=== PATIENT | female | born 1960 | race Caucasian/White ===

== ENCOUNTER 2023-09-18 07:01 | Emergency (ER) | payer MEDICARE, MEDICAID, SELFPAY ==
[2023-09-18 07:09] VITALS: BP 98/56; PULSE 96; RESP 18; TEMP 36.8; O2SAT 96
[2023-09-18 07:14] VITALS: BP 102/55; PULSE 91; O2SAT 97
--- NOTE | 2023-09-18 07:22 | ED_ITS ---
HPI - Skin/Abscess/Foreign Bdy General: Chief complaint: Skin/Abscess/Foreign Body Stated complaint: RASH Time Seen by Provider: 09/18/23 07:05 Source: patient Mode of arrival: EMS History of Present Illness: 60-year-old female presents to the emerg ency room with complaints of a skin rash that she says she has had for 13 months per her report to the nurses when I can seen her she told me it was 14 months. States she feels like something is crawling all over her she states she is seen the doctor in [place] but did not feel like they paid very much attention to it. She has not had any fever sweats or chills. She has had no blistering of the rash. No bleeding no drainage. Patient denies trying any [id number] medications for it. MD complaint: rash Onset (ago): month(s) (-) Quality: pruritic Relieving factors: none Exacerbating factors: none Associated symptoms: Reports itching; Deny arthralgias, chills, cough, fever(s), myalgias, nausea, rigidity, short of breath or vomiting Treatments prior to arrival: none Review of Systems Const: Denies: fever(s) or chills Card: Denies: chest pain Resp: Denies: dyspnea GI: Denies: nausea or vomiting : Denies: dysuria, urinary frequency or urinary urgency Musc: Denies: neck pain or back pain Skin/Breast: Denies: rash Physical Exam Const: COMMON NORMALS: no acute distress GENERAL APPEARANCE: cooperative and comfortable NUTRITIONAL APPEARANCE: underweight ORIENTATION/CONSCIOUSNESS: Yes awake, Yes oriented to person, Yes oriented to place and Yes oriented to time HENMT: COMMON NORMALS: normocephalic, atraumatic and hearing grossly normal bilaterally HEAD & SCALP: normocephalic and atraumatic Resp: COMMON NORMALS: normal respiratory effort, No retractions, No use of accessory muscles and clear to auscultation bilaterally AUSCULTATION: clear to auscultation bilaterally Cardio: COMMON NORMALS: regular rate, regular rhythm and No murmurs present (Cardio) RATE: regular rate RHYTHM: regular rhythm GI: COMMON NORMALS: Soft to palpation and No hepatosplenomegaly present AUSCULTATION: Yes normoactive bowel sounds PALPATION: Yes Soft to palpation, No Tenderness to palpation present (GI), No Guarding due to palpation present (GI) and Yes No hepatosplenomegaly present Extremity: COMMON NORMALS: normal to inspection, capillary refill normal, no clubbing, cyanosis or edema, no calf tenderness and no pedal edema Neuro: SENSORIUM/ORIENTATION: Yes oriented to person, Yes oriented to place and Yes oriented to time Psych: MOOD & AFFECT: Yes irritable Skin: COMMON NORMALS: no rashes or lesions noted GENERAL SKIN EXAM: no rashes or lesions noted OTHER: No rash noted. Patient does indicate a couple areas where she has a small ecchymosis most notably on the dorsum of her right forearm she also has areas bilaterally over the patella 1 area in the left anterior tibia another on the medial proximal left thigh. None on the trunk. None in the scalp or on the face chest or abdomen. Skin is quite dry she is continually itching at her skin during exam Course Vital Signs: Vital signs: Vital Signs Temperature 98.3 F 09/18/23 07:09 Pulse Rate 91 09/18/23 07:14 Respiratory Rate 18 09/18/23 07:09 Blood Pressure 102/55 09/18/23 07:14 Pulse Oximetry 97 09/18/23 07:14 Oxygen Delivery Me thod Room Air 09/18/23 07:09 MDM - Skin/Abscess/Foreign Bdy Medicial Decision Making No emergent condition at this time. Patient purely focused on the rash she denies all other symptoms and review of systems. She has not tried anything [id number]. This point no emergent condition exists recommended. Cetaphil lotion as needed can use cetirizine up to 10 mg twice a day for pruritic symptoms. If this persists or worsens follow-up with primary care doctor for referral to dermatology if felt appropriate Medical Records I reviewed the patient's medical records. No radiology studies performed this visit Discharge Plan Discharge Patient Disposition: Home Clinical Impression: Dyshidrosis Condition: Stable Prescriptions: New cetirizine 10 mg capsule 10 mg PO BID PRN (Reason: itching) Qty: 60 0RF Cetaphil Moisturizing Lotion 1 applic topical QID PRN (Reason: dry skin) Qty: 473 0RF Discharge Orders: Discharge ED (Routine); Ordered 09/18/23 Ordered By: Toribio Turner Referrals: Louise Montesinos NP [Primary Care Provider] - Discharge Diet: Usual diet Discharge Activity: Resume usual activity Patient Instructions: Opioid Safety, Pain Management Activity Restrictions/Additional Instructions: Thank you for choosing [facility] for your healthcare needs today. Please realize this is an emergency room and that we are providing you with a medical screening exam and this may not be complete and all inclusive of all the testing and or work up that you may need to determine your ailment or severity of your illness. It is very important that you follow up as instructed or that you return to the Emergency Department should you have concerns or if your condition changes or worsens in any way. Recommend you follow-up with your primary care doctor for further evaluation if condition worsens, changes or persists. Print Language: Dominican Coding Level of Care Code ED Energy Conservation Director for Bhupinder Abreu
== END 2023-09-18 07:19 | disposition home or self-care (01) ==
PROVIDERS: Emergency Provider Family Medicine; PCP Nurse Practitioner Family
DX: L30.1 Dyshidrosis [pompholyx] (principal)
CPT/HCPCS: 99283

== ENCOUNTER 2024-04-06 13:45 | Emergency (ER) | payer MEDICARE, MEDICAID, SELFPAY ==
[2024-04-06] VITALS (7 sets, daily range): BP systolic 116–147; BP diastolic 66–71; PULSE 77–101; RESP 14–24; TEMP 36.4; O2SAT 96–100
--- NOTE | 2024-04-06 13:48 | ECG_ITS ---
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 Measurements Intervals [place] Rate: 83 P: 208 [place]: 366 QRS: 44 QRSD: 90 T: 30 QT: 400 QTc: 470 Interpretive Statements ELECTRONIC ATRIAL PACEMAKER POSSIBLE INFERIOR MYOCARDIAL INFARCTION , PROBABLY OLD [30 ms Q WAVE IN II/aVF] ABNORMAL RHYTHM ECG WARNING: DATA QUALITY MAY AFFECT INTERPRETATION Compared to ECG 09/06/2018 01:06:12 Myocardial infarct finding now present Sinus rhythm no longer present ST (T wave) deviation no longer present Electronically Signed On 04-06-2024 21:51:04 CRACKER SPRAYER by Ky Reynoso M.D. [id number]
--- NOTE | 2024-04-06 13:49 | XR_ITS ---
WS: [id number] XR chest 1V portable [id number] REASON FOR EXAM: dyspnea/cough FINDINGS: Moderate tortuosity of the thoracic aorta. Normal heart size. Calcified granulomas disease. Blunting of the right costophrenic angle. Seen on previous examination of 09/06/2018. There are subtle reticular interstitial lung opacities over the right costophrenic and left costophre jeyson angles and also in the left lower lung. There is peribronchial cuffing associated with this abnor mality. Old healed bilateral rib fractures. Laterally XR/XR chest 1V portable [id number] IMPRESSION: There are subtle changes in both lower lobes of unknown chronicity, however the se findings may represent an early pneumonitis.
--- NOTE | 2024-04-06 14:05 | ED_ITS ---
HPI - SOB/Dyspnea 2 General: Chief Complaint: Shortness of Breath/Dyspnea Stated Complaint: SOB Time Seen by Provider: 04/06/24 13:47 History of Present Illness: HPI Narrative: 63-year-old female presents to [facility] ency room coming shortness of breath and cough for the last 2 months no hemoptysis. She has productive cough of discolored mucus she has been on antibiotics and steroids she was told she had pneumonia she is still having symptoms. Patient not having any hemoptysis. She has had the symptoms intermittently for the last 2 months. Associated symptoms: Reports chest congestion; Deny abdominal pain, chest pain or fever(s) Related Data Home Medications Medication Instructions Recorded Confirmed albuterol sulfate 90 mcg/actuation 2 puff inhalation Q8H PRN 04/06/24 04/06/24 aerosol inhaler Shortness Of Breath famotidine 20 mg tablet (Pepcid) 20 mg PO DAILY 04/06/24 04/06/24 furosemide 40 mg tablet 40 mg PO DAILY 04/06/24 04/06/24 hydroxyzine HCl 50 mg tablet 50 mg PO TID PRN Anxiety 04/06/24 04/06/24 mirtazapine 15 mg tablet 15 mg PO BEDTIME 04/06/24 04/06/24 pantoprazole 40 mg tablet,delayed 40 mg PO DAILY 04/06/24 04/06/24 release potassium chloride 10 mEq 10 meq PO QAM 04/06/24 04/06/24 tablet,extended release trazodone 150 mg tablet 150 mg PO BEDTIME 04/06/24 04/06/24 Previous Rx's Medication Instructions Recorded cetirizine 10 mg capsule 10 mg PO BID PRN itching #60 caps 09/18/23 vit U-stcqyxnf-xzzotkmlkhw lotion 1 applic topical QID PRN dry skin 09/18/23 (Cetaphil Moisturizing lotion) #473 mL Allergies Allergy/AdvReac Type Severity Reaction Status Date / Time morphine Allergy ALGY-Rash Verified 07/15/23 16:07 Review of Systems 2 Const: Denies: fever(s) or chills Card: Denies: chest pain Resp: Reports: dyspnea, productive cough, wheezing and chest congestion GI: Denies: abdominal pain : Denies: dysuria, urinary frequency or urinary urgency Musc: Denies: neck pain or back pain Skin/Breast: Denies: rash PFSH ED 2 PFSH: Medical History (Updated 04/06/24 @ 18:44 by Toribio Turner DO) COPD (chronic obstructive pulmonary disease) Physical Exam 2 Const: COMMON NORMALS: no acute distress GENERAL APPEARANCE: cooperative and comfortable ORIENTATION/CONSCIOUSNESS: Yes awake, Yes oriented to person, Yes oriented to place and Yes oriented to time HENMT: COMMON NORMALS: normocephalic, atraumatic and hearing grossly normal bilaterally HEAD & SCALP: normocephalic and atraumatic Resp: COMMON NORMALS: normal respiratory effort, No retractions, No use of accessory muscles and clear to auscultation bilaterally AUSCULTATION: clear to auscultation bilaterally Cardio: COMMON NORMALS: regular rate, regular rhythm and No murmurs present (Cardio) RATE: regular rate RHYTHM: regular rhythm GI: COMMON NORMALS: Soft to palpation and No hepatosplenomegaly present A USCULTATION: Yes normoactive bowel sounds PALPATION: Yes Soft to palpation, No Tenderness to palpation present (GI), No Guarding due to palpation present (GI) and Yes No hepatosplenomegaly present Extremity: COMMON NORMALS: normal to inspection, capillary refill normal, no clubbing, cyanosis or edema, no calf tenderness and no pedal edema Neuro: SENSORIUM/ORIENTATION: Yes oriented to person, Yes oriented to place and Yes oriented to time Skin: COMMON NORMALS: no rashes or lesions noted GENERAL SKIN EXAM: no rashes or lesions noted Course 2 Vital Signs: Vital signs: Vital Signs Temperature 97.5 F L 04/06/24 13:54 Pulse Rate 101 H 04/06/24 17:00 Respiratory Rate 20 H 04/06/24 16:14 Blood Pressure 147/71 04/06/24 17:00 Pulse Oximetry 96 04/06/24 16:14 Oxygen Delivery Me thod Room Air 04/06/24 16:14 MDM - SOB/Dyspnea Medical Decision Making Initially I seen and patient is complaining of shortness of breath and cough he has not had any hemoptysis but she was complaining of productive cough. When I went back to review with the patient we had added a gallbladder ultrasound because her liver functions are elevated she does have hepatitis C. She is now complaining of chest pain which she had not complained of previously. We added troponins at that appointment for follow-up the labs she had done earlier in the second 1 to be redrawn. Patient decided to leave AMA. Up to this point we had been looking at possible pneumonia PE the CTA chest was negative she had added the complaint of chest pain which started cardiac labs. Reviewed with the patient that so far findings did not show significant abnormality she was convinced that she had pneumonia and discussed with her she did not have a pneumonia or a pulmonary embolism. Medical Records I reviewed the patient's medical records. Lab Data I reviewed the patient's lab results. 04/06/24 14:05 04/06/24 14:05 Labs/Radiology: Radiology Impressions Chest X-Ray 04/06/24 13:49 IMPRESSION: There are subtle changes in both lower lobes of unknown chronicity, however these findings may represent an early pneumonitis. Chest CTA 04/06/24 15:28 IMPRESSION: 1. No pulmonary embolism. No acute intrathoracic aortic process. 2. The lungs are clear of acute infiltrates. Mild subpleural reticulation. 3. Multi station mediastinal lymph nodes are likely reactive. 4. Findings in the upper abdomen include cirrhotic morphology of the liver, mild hydropic gallbladder with gallstones, diffuse gastric wall thickening which may be related to portal venous hypertension versus gastritis, and ascites. COMMENTS: The presence of pulmonary emphysema on CT is an independent risk factor for lung cancer. In the absence of a history or active diagnosis of lung cancer, it is recommended that this patient with emphysema be evaluated for enrollment in a low dose CT lung cancer screening program. Gallbladder Ultrasound 04/06/24 15:58 IMPRESSION: Cirrhotic morphology of the liver. There is some gallbladder wall thickening and some pericholecystic fluid. These changes within the gallbladder are likely secondary to diffuse hepatocellular disease. Laboratory Results WBC 8.27 10^3/uL (3.29-11.43) 04/06/24 14:05 RBC 3.04 10^6/uL (3.85-5.65) L 04/06/24 14:05 Hgb 9.30 g/dL (11.27-16.99) L 04/06/24 14:05 Hct 28.3 % (36-47) L 04/06/24 14:05 MCV 93.1 fl (85-98) 04/06/24 14:05 MCH 30.6 pg (27-33) 04/06/24 14:05 MCHC 32.9 g/dL (30-55) 04/06/24 14:05 RDW 17.3 % (12.1-15.1) H 04/06/24 14:05 Plt Count 154 10^3/cmm (157-399) L 04/06/24 14:05 MPV 11.6 fL (7.4-10.4) H 04/06/24 14:05 Neut % (Auto) 57.8 % 04/06/24 14:05 Lymph % (Auto) 28.9 % 04/06/24 14:05 Bowman % (Auto) 11.2 % 04/06/24 14:05 Eos % (Auto) 1.1 % 04/06/24 14:05 Baso % (Auto) 0.8 % 04/06/24 14:05 Neut # (Auto) 4.77 10^3/uL (1.8-7.7) 04/06/24 14:05 Lymph # (Auto) 2.4 10^3/uL (0.8-4.8) 04/06/24 14:05 Bowman # (Auto) 0.9 10^3/uL (0.2-0.9) 04/06/24 14:05 Eos # (Auto) 0.1 10^3/uL (0.0-0.8) 04/06/24 14:05 Baso # (Auto) 0.1 10^3/uL (0.0-0.1) 04/06/24 14:05 Nucleated RBC % (auto) 0 % 04/06/24 14:05 Nucleated RBCs # 0.0 /100WBC 04/06/24 14:05 Specimen Type Arterial 04/06/24 15:41 Sample Site Brachial, right 04/06/24 15:41 ABG pH 7.49 (7.35-7.45) H 04/06/24 15:41 ABG pCO2 26.8 mmHg (35-45) L 04/06/24 15:41 ABG pO2 89.9 mmHg (80.0-100.0) 04/06/24 15:41 ABG PO2/FiO2 Ratio 428 04/06/24 15:41 ABG HCO3 20.4 mmol/L (22-26) L 04/06/24 15:41 ABG O2 Saturation 97.5 04/06/24 15:41 ABG Base Excess -2.2 mmol/L (-2.0-2.0) L 04/06/24 15:41 Tolu Test N/a 04/06/24 15:41 A-a O2 Gradient 3.5 mmHg (5-10) L 04/06/24 15:41 Hematocrit 27.8 % (37-47) L 04/06/24 15:41 Hgb O2 Saturation 95.2 % (95-100) 04/06/24 15:41 Carboxyhemoglobin 1.9 %THgb (0.4-20.1) 04/06/24 15:41 Methemoglobin 0.4 % (0.4-1.5) 04/06/24 15:41 Total Hemoglobin 9.1 g/dL (12-16) L 04/06/24 15:41 Sodium 142.0 mmol/L (131-143) 04/06/24 15:41 Potassium 3.2 mmol/L (3.5-5.0) L 04/06/24 15:41 Glucose 107.0 mg/dL (70-115) 04/06/24 15:41 Ionized Calcium 1.2 mmol/L (1.1-1.4) 04/06/24 15:41 O2 Delivery Device Room air 04/06/24 15:41 FiO2 21.0 % 04/06/24 15:41 Engine Boss ID glc 04/06/24 15:41 Sodium 137 mmol/L (136-145) 04/06/24 14:05 Potassium 3.4 mmol/L (3.5-5.1) L 04/06/24 14:05 Chloride 99 mmol/L (98-107) 04/06/24 14:05 Carbon Dioxide 23 mmol/L (22-29) 04/06/24 14:05 Anion Gap 18.4 (5-19) 04/06/24 14:05 BUN 13 mg/dL (8-23) 04/06/24 14:05 Creatinine 0.7 mg/dL (0.5-0.9) 04/06/24 14:05 GFR Calculation 84.5 mL/min (90-130) L 04/06/24 14:05 Glucose 102 mg/dL (65-115) 04/06/24 14:05 Calculated Osmolality 284 mOsm/kg (285-295) L 04/06/24 14:05 Calcium 9.2 mg/dL (8.5-10.5) 04/06/24 14:05 Total Bilirubin 1.9 mg/dL (0.15-1.2) H 04/06/24 14:05 AST 202 U/L (0-32) H 04/06/24 14:05 ALT 78 U/L (0-33) H 04/06/24 14:05 Alkaline Phosphatase 162 U/L (35-105) H 04/06/24 14:05 Troponin T Baseline 44 ng/L (0-10) H 04/06/24 14:05 NT-Pro-B Natriuret Pep 457 pg/mL (0-125) H 04/06/24 14:05 Total Protein 7.8 g/dL (6.6-8.7) 04/06/24 14:05 Albumin 3.6 g/dL (3.5-5.2) 04/06/24 14:05 Globulin 4.2 g/dL (1.3-4.6) 04/06/24 14:05 Lipase 95 U/L (13-60) H 04/06/24 14:05 Coronavirus (PCR) Negative (Negative) 04/06/24 14:05 Hepatitis A IgM Ab Non-reactive (Nonreactive) 04/06/24 14:05 Hep Bs Antigen Non-reactive (Nonreactive) 04/06/24 14:05 Hep B Core IgM Ab Non-reactive (Nonreactive) 04/06/24 14:05 Hepatitis C Antibody Reactive (Nonreactive) H 04/06/24 14:05 Influenza A (PCR) Negative (Negative) 04/06/24 14:05 Influenza Type B (PCR) Negative (Negative) 04/06/24 14:05 RSV (PCR) Negative (Negative) 04/06/24 14:05 All radiology interpretation(s) finalized by discharge Discharge Plan Discharge Patient Disposition: Left Against Medical Advice Clinical Impression: Acute exacerbation of chronic obstructive airways disease Prescriptions: No Action furosemide 40 mg tablet 40 mg PO DAILY potassium chloride 10 mEq tablet extended release 10 meq PO QAM hydroxyzine HCl 50 mg tablet 50 mg PO TID PRN (Reason: Anxiety) famotidine [Pepcid] 20 mg Tablet 20 mg PO DAILY pantoprazole 40 mg tablet,delayed release (DR/EC) 40 mg PO DAILY trazodone 150 mg tablet 150 mg PO BEDTIME mirtazapine 15 mg tablet 15 mg PO BEDTIME albuterol sulfate 90 mcg/actuation Hfa Aerosol Inhaler 2 puff INHALATION Q8H PRN (Reason: Shortness Of Breath) cetirizine 10 mg capsule 10 mg PO BID PRN (Reason: itching) Qty: 60 0RF Cetaphil Moisturizing Lotion 1 applic topical QID PRN (Reason: dry skin) Qty: 473 0RF Referrals: Louise Montesinos, LAW TUTOR [Primary Care Provider] - Coding Level of Care Code ED Ladle Liner for Daríog Brady
[2024-04-06] MEDS: methylPREDNISolone sod succ 125 mg/2 mL INJ IVP (14:18)
[2024-04-06 14:21] LABS: Basophils # 0.1 10^3/uL (0.0-0.1); Basophils % 0.8 %; Eosinophils # 0.1 10^3/uL (0.0-0.8); Eosinophils % 1.1 %; Hematocrit 28.3 % (36-47); Lymphocytes # 2.4 10^3/uL (0.8-4.8); Lymphocytes % 28.9 %; Mean Corpuscular HGB Conc 32.9 g/dL (30-55); Mean Corpuscular Hemoglobin 30.6 pg (27-33); Mean Corpuscular Volume 93.1 fl (85-98); Mean Platelet Volume 11.6 fL (7.4-10.4); Monocytes # 0.9 10^3/uL (0.2-0.9); Monocytes % 11.2 %; Neutrophils # 4.77 10^3/uL (1.8-7.7); Neutrophils % 57.8 %; Nucleated Red Blood Cells % 0 %; Platelet Count 154 10^3/cmm (157-399); Red Blood Count 3.04 10^6/uL (3.85-5.65); Red Cell Distribution Width 17.3 % (12.1-15.1); White Blood Count 8.27 10^3/uL (3.29-11.43)
[2024-04-06] MEDS: ipratropium-albuterol 3 mL Neb INHALATION ×2 (14:32→16:11)
[2024-04-06 14:51] LABS: Alanine Aminotransferase 78 U/L (0-33); Albumin Level 3.6 g/dL (3.5-5.2); Alkaline Phosphatase 162 U/L (35-105); Anion Gap 18.4 (5-19); Aspartate Amino Transferase 202 U/L (0-32); Blood Urea Nitrogen 13 mg/dL (8-23); Calcium 9.2 mg/dL (8.5-10.5); Carbon Dioxide 23 mmol/L (22-29); Chloride 99 mmol/L (98-107); Creatinine Clr Calc Pharmacy 58.9037; Globulin 4.2 g/dL (1.3-4.6); Glomerular Filtration Rate 84.5 mL/min (90-130); Glucose 102 mg/dL (65-115); NT Pro B Type Natriuretic Pept 457 pg/mL (0-125); Osmolality Calculated 284 mOsm/kg (285-295); Potassium 3.4 mmol/L (3.5-5.1); Sodium 137 mmol/L (136-145); Total Bilirubin 1.9 mg/dL (0.15-1.2); Total Protein 7.8 g/dL (6.6-8.7)
[2024-04-06 15:02] LABS: Covid PCR NEGATIVE (Negative); Influenza A NEGATIVE (Negative); Influenza B NEGATIVE (Negative); Respiratory Syncytial Virus Ce NEGATIVE (Negative)
--- NOTE | 2024-04-06 15:28 | CTR_ITS ---
PROCEDURE INFORMATION: Exam: CTA Chest With Contrast Exam date and time: 04/06/2024 4:34 PM Age: 63 years old Clinical indication: Dyspnea; Additional info: Dyspnea chest pain TECHNIQUE: Imaging protocol: Computed tomographic angiography of the chest with contrast. Exam focused on the arteries. 3D rendering (Not supervised by radiologist): MIP and/or 3D reconstructed images were created by the technologist. Radiation optimization: All CT scans at this facility use at least one of these dose optimization techniques: automated exposure control; mA and/or kV adjustment per patient size (includes targeted exams where dose is matched to clinical indication); or iterative reconstruction. Contrast material: OMNIPAQUE 350; Contrast volume: 75 ml; Contrast route: INTRAVENOUS (IV); COMPARISON: CR XR chest 1V portable [id number] 04/06/2024 1:53 PM RADIATION DOSE METRICS: Total DLP (mGy-cm): 191.43 FINDINGS: Pulmonary arteries: Normal. No pulmonary emboli. Aorta: Unremarkable. No aortic aneurysm. No aortic dissection. 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 Excellent Lungs: Emphysematous changes of the lungs. No lobar consolidation. Mild areas of subpleural reticulation related to atelectasis versus of subpleural fibrosis. Pleural spaces: Unremarkable. No pneumothorax. No pleural effusion. Heart: Unremarkable. No cardiomegaly. No pericardial effusion. Coronary arteries: Mild coronary artery calcifications. Lymph nodes: Multi station small mediastinal lymph nodes are present. Liver: Nodular contour of the liver suggesting cirrhosis. Gallbladder and biliary ducts: Gallstones within a mildly distended gallbladder. Stomach: There is diffuse gastric wall thickening which is nonspecific. Intraperitoneal space: Perihepatic ascites. Bones/joints: Chronic rib fractures. Soft tissues: Unremarkable. CT/CT angio chest PE protcl [id number] IMPRESSION: 1. No pulmonary embolism. No acute intrathoracic aortic process. 2. The lungs are clear of acute infiltrates. Mild subpleural reticulation. 3. Multi station mediastinal lymph nodes are likely reactive. 4. Findings in the upper abdomen include cirrhotic morphology of the liver, mild hydropic gallbladder with gallstones, diffuse gastric wall thickening which may be related to portal venous hypertension versus gastritis, and ascites. COMMENTS: The presence of pulmonary emphysema on CT is an independent risk factor for lung cancer. In the absence of a history or active diagnosis of lung cancer, it is recommended that this patient with emphysema be evaluated for enrollment in a low dose CT lung cancer screening program.
[2024-04-06 15:53] LABS: ABG PCO2 26.8 mmHg (35-45); ABG PH Result 7.49 (7.35-7.45); Alveolar-Arterial Oxygen Gradi 3.5 mmHg (5-10); Arterial Blood Gas Hematocrit 27.8 % (37-47); Base Excess ABG -2.2 mmol/L (-2.0-2.0); Blood Gas Operator Identificat glc; Blood Gas Sample Site Brachial, right; Blood Gas Sample Type Arterial; Carboxyhemoglobin 1.9 %THgb (0.4-20.1); HCO3 ABG 20.4 mmol/L (22-26); HGB O2 Sat 95.2 % (95-100); Ionized Calcium Level - ABG 1.2 mmol/L (1.1-1.4); Methemoglobin 0.4 % (0.4-1.5); Oxygen Device ROOM AIR; Oxygen Saturation ABG 97.5; PO2 ABG 89.9 mmHg (80.0-100.0); PO2 FiO2 Ratio Arterial Blood 428; Potassium Level - ABG 3.2 mmol/L (3.5-5.0); Total Hemoglobin 9.1 g/dL (12-16)
--- NOTE | 2024-04-06 15:58 | USR_ITS ---
PROCEDURE INFORMATION: Exam: US Abdomen, Limited; Right Upper Quadrant Exam date and time: 04/06/2024 4:50 PM Age: 63 years old Clinical indication: Abnormal findings; Abnormal lab test; Elevated liver enzymes; Additional info: Elevated liver enzymes and t. Bili TECHNIQUE: Imaging protocol: Real time ultrasound of the abdomen with image documentation. Limited exam focused on the right upper quadrant. COMPARISON: CT angio chest PE protcl [id number] 04/06/2024 4:34 PM FINDINGS: Liver: Cirrhotic morphology of the liver peripheral nodular contour. Trace hepatic ascites. Gallbladder: There is a sonographic negative Charles's sign. Gallbladder wall thickness is up to 4 mm. The gallbladder is slightly hydropic. Mild pericholecystic fluid. Biliary ducts: No biliary dilatation. Pancreas: Limited evaluation of the pancreas is unremarkable. Right kidney: Normal right kidney. US/US gall bladder [id number] IMPRESSION: Cirrhotic morphology of the liver. There is some gallbladder wall thickening and some pericholecystic fluid. These changes within the gallbladder are likely secondary to diffuse hepatocellular disease.
[2024-04-06] MEDS: iohexol 350 mg/mL 500 mL Btl (per mL) IV (16:37)
[2024-04-06 16:41] LABS: Hepatitis A Antibody IgM Non-Reactive (Nonreactive); Hepatitis B Core IgM Non-Reactive (Nonreactive); Hepatitis B Surface Antigen Non-Reactive (Nonreactive); Hepatitis C Virus Antibody Reactive (Nonreactive)
[2024-04-06 17:28] LABS: Lipase 95 U/L (13-60)
--- NOTE | 2024-04-06 17:47 | ECG_ITS ---
[facility] Test Date: 2024-04-06 Pat Name: Sapna Talamantes Department: Room: Gender: Female Creative Services Specialist: : 1960 Requested By: Toribio Griggs Order Number: [id number] Joel MD: Ky Reynoso M.D. Measurements Intervals [place] Rate: 118 P: 60 ME: 147 QRS: 48 QRSD: 83 T: 68 QT: 421 QTc: 591 Interpretive Statements SINUS TACHYCARDIA POSSIBLE LEFT ATRIAL ENLARGEMENT [-0.1mV P-WAVE IN V1/V2] NONSPECIFIC ST & T-WAVE ABNORMALITY Compared to ECG 04/06/2024 13:48:38 T-wave abnormality now present Atrial-paced complex(es) or rhythm no longer present Myocardial infarct finding no longer present Electronically Signed On 04-06-2024 21:24:46 LAST CODE STRIPER by Ky Reynoso M.D. [email or web address]
--- NOTE | 2024-04-06 18:03 | PC.NURSE ---
PT agitated, refusing troponin stating she wants to leave to go to [facility]
[2024-04-06 18:10] LABS: Troponin(5th) Baseline 44 ng/L (0-10)
[2024-04-08 15:39] LABS: HEP C RNA Viral Load Quant 1890000 IU/mL (NOT DETECTED); HEP C RNA Viral Load Quant 6.28 Log IU/mL (NOT DETECTED)
== END 2024-04-06 18:04 | disposition left against medical advice (07) ==
PROVIDERS: Emergency Provider Family Medicine; PCP Nurse Practitioner Family
DX: J44.1 Chronic obstructive pulmonary disease with (acute) exacerbation (principal); Z11.52 Encounter for screening for COVID-19
CPT/HCPCS: 0241U; 36415; 36600; 71045; 71275; 76705; 80051; 80053; 80074; 82330; 82805; 83690; 83880; 84484; 85025; 87522; 93005; 94640; 96374; 99285; J2919

== ENCOUNTER 2025-02-03 12:39 | Emergency (ER) | payer OTHER, MEDICAID, SELFPAY ==
[2025-02-03 12:42] VITALS: BP 100/59; PULSE 111; RESP 16; TEMP 36.8; O2SAT 96; BMI 17.4
--- NOTE | 2025-02-03 12:45 | W.ED.GIBLEED ---
HPI - GI Bleed General: Chief complaint: GI Bleed Stated complaint: n/v Time Seen by Provider: 02/03/25 12:41 History of Present Illness: 64-year-old female with a history of COPD and chronic hypoxemic respiratory failure on 2 L nasal cannula at all times, cirrhosis and small esophageal varices who presents to the emergency room with vomiting and diarrhea that appears to be bloody. She does have a history of an ulcer in the past. She reports black tarry stools. She is borderline hypotensive and slightly tachycardic on presentation. Says she has been having some epigastric pain. No altered mental status. No focal motor deficits. No known history of cirrhosis. Related Data Home Medications ?Medication ?Instructions ?Recorded ?Confirmed albuterol sulfate 90 mcg/actuation 2 puff inhalation Q8H PRN 04/06/24 04/06/24 aerosol inhaler Shortness Of Breath famotidine 20 mg tablet (Pepcid) 20 mg PO DAILY 04/06/24 04/06/24 furosemide 40 mg tablet 40 mg PO DAILY 04/06/24 04/06/24 hydroxyzine HCl 50 mg tablet 50 mg PO TID PRN Anxiety 04/06/24 04/06/24 mirtazapine 15 mg tablet 15 mg PO BEDTIME 04/06/24 04/06/24 pantoprazole 40 mg tablet,delayed 40 mg PO DAILY 04/06/24 04/06/24 release potassium chloride 10 mEq 10 meq PO QAM 04/06/24 04/06/24 tablet,extended release trazodone 150 mg tablet 150 mg PO BEDTIME 04/06/24 04/06/24 Previous Rx's ?Medication ?Instructions ?Recorded cetirizine 10 mg capsule 10 mg PO BID PRN itching #60 caps 09/18/23 vit S-bvvgtovw-yzfmhyrnqrs lotion 1 applic topical QID PRN dry skin 09/18/23 (Cetaphil Moisturizing lotion) #473 mL Allergies Allergy/AdvReac Type Severity Reaction Status Date / Time morphine Allergy ALGY-Rash Verified 07/15/23 16:07 Review of Systems Narrative: Constitutional symptoms: Negative except as documented in HPI. Skin symptoms: Negative except as documented in HPI. Eye symptoms: Negative except as documented in HPI. ENMT symptoms: Negative except as documented in HPI. Respiratory symptoms: Negative except as documented in HPI. Cardiovascular symptoms: Negative except as documented in HPI. Gastrointestinal symptoms: Negative except as documented in HPI. Genitourinary symptoms: Negative except as documented in HPI. Musculoskeletal symptoms: Negative except as documented in HPI. Neurologic symptoms: Negative except as documented in HPI. Psychiatric symptoms: Negative except as documented in HPI. Endocrine symptoms: Negative except as documented in HPI. [facility] PFSH: Medical History (Updated 02/03/25 @ 14:28 by Sujey Cancino MD) COPD (chronic obstructive pulmonary disease) Physical Exam Narrative: EXAM NARRATIVE: General: Alert, no acute distress. Skin: Warm, dry. Appears pale Head: Normocephalic, atraumatic. Neck: Supple, trachea midline. Eye: Extraocular movements are intact. Ears, nose, mouth and throat: mucosa moist. Cardiovascular: Regular, Normal peripheral perfusion. Respiratory: Lungs are clear to auscultation, respirations are non-labored, breath sounds are equal, Symmetrical chest wall expansion. Gastrointestinal: Soft, epigastric tenderness, Non distended Musculoskeletal: Normal ROM, no deformity. Neurological: Alert and oriented, No focal neurological deficit observed. Psychiatric: Cooperative, appropriate mood & affect. Course Vital Signs: Vital signs: Vital Signs Temperature 98.3 F 02/03/25 12:42 Pulse Rate 111 H 02/03/25 12:42 Respiratory Rate 16 02/03/25 12:42 Blood Pressure 100/59 02/03/25 12:42 Pulse Oximetry 96 02/03/25 12:42 Oxygen Delivery Me thod Room Air 02/03/25 12:42 MDM - GI Bleed Medical Decision Making Medical decision making: Differential diagnosis including but not limited to and based on the above HPI, review of systems and physical exam: In a patient with upper GI bleeding would have concern for upper gi bleed from varices or ulcer. Concern for anemia. Concern for liver disease. concern for anticoagulation. Orders placed to evaluate differential diagnosis based on the above differential, HPI and physical exam Lab Review: Laboratory results were reviewed and interpreted by myself the emergency room physician. No leukocytosis. Hemoglobin 5.9. BUN and creatinine 59 and 1.2. This would indicate an acute upper GI bleed. Bilirubin is a bit elevated at 3.3. I reviewed the patient's medical record. 64-year-old female with a history of COPD and chronic hypoxemic respiratory failure on 2 L nasal cannula at all times, cirrhosis and small esophageal varices. I spoke with the transfer center at [facility] and confirmed that she did have esophageal varices and portal hypertensive gastropathy. Reexamination: Patient absolutely refuses to go by helicopter. Vitals have remained stable with a bit of a soft blood pressure and heart rate around 100-110. No altered mental status. No focal motor deficits. She does show capacity to make decisions. Assessment and plan: Acute upper GI bleeding Acute blood loss anemia Cirrhosis Esophageal varices COPD ? 2 units PRBCs in the emergency room. 1 L normal saline bolus. IV Protonix. Octreotide -I discussed the patient with the accepting physician on-call. - Discussed findings and plan with patient. Answered any questions. - All laboratory values were reviewed and interpreted personally by myself, the ER physician - All imaging was reviewed and interpreted personally by myself, the ER physician. - Evaluation and treatment of this problem were appropriate in the emergency setting Critical Care: -I spent a total of 38 minutes of critical care time managing the patient, independent of any other practitioner. -The time involved in the performance of separately reportable procedures was not counted towards critical care time. Lab Data 02/03/25 12:05 02/03/25 12:05 Laboratory Results WBC 9.53 10^3/uL (3.29-11.43) 02/03/25 12:05 RBC 1.98 10^6/uL (3.85-5.65) L 02/03/25 12:05 Hgb 5.90 g/dL (11.27-16.99) L* 02/03/25 12:05 Hct 19.1 % (36-47) L* 02/03/25 12:05 MCV 96.5 fl (85-98) 02/03/25 12:05 MCH 29.8 pg (27-33) 02/03/25 12:05 MCHC 30.9 g/dL (30-55) 02/03/25 12:05 RDW 20.1 % (12.1-15.1) H 02/03/25 12:05 Plt Count 133 10^3/cmm (157-399) L 02/03/25 12:05 MPV 13.0 fL (7.4-10.4) H 02/03/25 12:05 Neut % (Auto) 71.8 % 02/03/25 12:05 Lymph % (Auto) 16.1 % 02/03/25 12:05 Bent % (Auto) 11.3 % 02/03/25 12:05 Eos % (Auto) 0.0 % 02/03/25 12:05 Baso % (Auto) 0.1 % 02/03/25 12:05 Neut # (Auto) 6.84 10^3/uL (1.8-7.7) 02/03/25 12:05 Lymph # (Auto) 1.5 10^3/uL (0.8-4.8) 02/03/25 12:05 Bent # (Auto) 1.1 10^3/uL (0.2-0.9) H 02/03/25 12:05 Eos # (Auto) 0.0 10^3/uL (0.0-0.8) 02/03/25 12:05 Baso # (Auto) 0.0 10^3/uL (0.0-0.1) 02/03/25 12:05 Nucleated RBC % (auto) 0.7 % 02/03/25 12:05 Nucleated RBCs # 0.1 /100WBC 02/03/25 12:05 PT 17.10 SECONDS (12.1-14.9) H 02/03/25 13:09 INR 1.31 (0.8-1.2) H 02/03/25 13:09 APTT 29.9 SECONDS (23.9-36.7) 02/03/25 13:09 Sodium 138 mmol/L (136-145) 02/03/25 12:05 Potassium 3.1 mmol/L (3.5-5.1) L 02/03/25 12:05 Chloride 86 mmol/L (98-107) L 02/03/25 12:05 Carbon Dioxide 24 mmol/L (22-29) 02/03/25 12:05 Anion Gap 31.1 (5-19) H 02/03/25 12:05 BUN 59 mg/dL (8-23) H 02/03/25 12:05 Creatinine 1.2 mg/dL (0.5-0.9) H 02/03/25 12:05 GFR Calculation 45.2 mL/min (90-130) L 02/03/25 12:05 Glucose 111 mg/dL (65-115) 02/03/25 12:05 Calculated Osmolality 303 mOsm/kg (285-295) H 02/03/25 12:05 Lactic Acid 7.7 mmol/L (0.5-2.2) H* 02/03/25 13:09 Calcium 10.0 mg/dL (8.5-10.5) 02/03/25 12:05 Total Bilirubin 3.3 mg/dL (0.15-1.2) H 02/03/25 12:05 AST 110 U/L (0-32) H 02/03/25 12:05 ALT 45 U/L (0-33) H 02/03/25 12:05 Alkaline Phosphatase 139 U/L (35-105) H 02/03/25 12:05 Total Protein 7.4 g/dL (6.6-8.7) 02/03/25 12:05 Albumin 3.5 g/dL (3.5-5.2) 02/03/25 12:05 Globulin 3.9 g/dL (1.3-4.6) 02/03/25 12:05 Blood Type O Positive 02/03/25 13:09 Rho(D) Type Rh positive 02/03/25 13:09 Antibody Screen Negative 02/03/25 13:09 Crossmatch See Detail 02/03/25 13:09 No radiology studies performed this visit Discharge Plan Discharge Patient Disposition: Xfer Short-Term Hosp Clinical Impression: Upper gastrointestinal hemorrhage, Acute blood loss anemia, Cirrhosis, History of esophageal varices, Chronic obstructive pulmonary disease Condition: Stable Referrals: Louise Montesinos NP [Primary Care Provider, [facility]] Print Language: Armenian Coding Level of Care Code ED Nursing Administrator for Daríog Brady
--- OUTSIDE RECORDS SUMMARY | 2025-02-03 12:51 | XMS_ITS | Encounter Summary ---
Author Organization [facility] Address [address] Attn: [place] [address] Care Team Providers Care Group Rooms Coordinator Name Role Phone Alf Tavares MD Primary Care Provider [phone] Encounter Details Date Type Department Care Team ([facility] st Contact Info) Description 01/28/2000 Outpatient Historical Non-Staff, Physician NO ADDRESS ON FILE Social History Tobacco Use Types Packs/Day Years Used Date Smoking Tobacco: Never Assessed Comments Unknown Sex and Gender Information Value Date Recorded Sex Assigned at Not on file Legal Sex Female 4:48 AM MODERN DANCER Gender Identity Not on file Sexual Orientation Not on file documented as of this encounter Plan of Treatment Not on file documented as of this encounter Visit Diagnoses Not on filedocumented in this encounter Additional Health Concerns Infection Onset Date Last Indicated Resolved Time R/O COVID-19 04/14/2020 04/14/2020 04/15/2020 11:0 1 PM MODERN DANCER documented as of this encounter Care Teams Group Rooms Coordinator Relationship Specialty Start Date End Date Alf Tavares MD [address] [facility] [address] [place] [phone] PCP - General Family Practice 01/28/18 documented as of this encounter
--- OUTSIDE RECORDS SUMMARY | 2025-02-03 12:51 | XMS_ITS | Encounter Summary ---
Author Organization [facility] Address [address] Attn: [place] [address] Care Team Providers Care Making Machine Catcher Name Role Phone Alf Tavares MD Primary Care Provider [phone] Encounter Details Date Type Department Care Team ([facility] st Contact Info) Description 10/21/2001 Outpatient Historical Non-Staff, Physician NO ADDRESS ON FILE Social History Tobacco Use Types Packs/Day Years Used Date Smoking Tobacco: Never Assessed Comments Unknown Sex and Gender Information Value Date Recorded Sex Assigned at Not on file Legal 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 Female 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 Gender Identity Not on file Sexual Orientation Not on file documented as of this encounter Plan of Treatment Not on file documented as of this encounter Visit Diagnoses Not on filedocumented in this encounter Additional Health Concerns Infection Onset Date Last Indicated Resolved Time R/O COVID-19 04/14/2020 04/14/2020 04/15/2020 11:0 1 PM FABRIC DESIGNER documented as of this encounter Care Teams Making Machine Catcher Relationship Specialty Start Date End Date Alf Tavares MD [address] [facility] [address] [place] [phone] PCP - General Family Practice 01/28/18 documented as of this encounter
--- OUTSIDE RECORDS SUMMARY | 2025-02-03 12:51 | XMS_ITS | Encounter Summary ---
Author Organization [facility] Address [address] [place] [address] Care Team Providers Care Criminology Teacher Name Role Phone Alf Tavares MD Primary Care Provider [phone] Reason for Visit * Reason Comments Medication Refill Encounter Details Date Type Department Care Team (Late st Contact Info) Description 02/03/2025 Refill [facility] Family Medicine [place] [address] [facility] [address] [place] [address] Lisandra Ontiveros, [facility] [address] [address] Alcoholic cirrhosis of liver without ascites Social History Tobacco Use Types Packs/Day Years Used Date Smoking Tobacco: Former Cigarettes 1 50.6 S tarted: 07/16/1974 Smokeless Tobacco: Never Alcohol Use Standard Drinks/Week Comments Not Currently 8 (1 standard drink = 0.6 oz pur e alcohol) daily Social Connections Answer Date Recorded In a typical week, how many times do you talk on the phone with family, friends, or neighbors? More than three times a week 01/28/2020 How often do you get togethe r with friends or relatives? Once a week 01/28/2020 How often do you attend chur ch or jewish services? Never 01/28/2020 Do you belong to any clubs o r organizations such as buddhist groups, unions, fraternal or athletic groups, or school groups? No 01/28/2020 How often do you attend meet ings of the clubs or organizations you belong to? Never 01/28/2020 Are you , , di vorced, , never , or living with a partner? 01/28/2020 Financial Resource Strain Answer Date R ecorded How hard is it for you to pa y for the very basics like food, housing, medical care, and heating? Not very hard 01/28/2020 Food Insecurity Answer Date Recorded Within the past 12 months, y ou worried that your food would run out before you got the money to buy more. Never true 01/28/20 20 Within the past 12 months, t he food you bought just didn't last and you didn't have money to get more. Never true 01/28/2020 Transportation Needs Answer Date Record ed In the past 12 months, has l ack of transportation kept you from medical appointments or from getting medications? Yes 01/04 In the past 12 months, has l ack of transportation kept you from meetings, work, or from getting things needed for daily living? Yes 01/28/2020 Feeling Safe Answer Date Recorded Are you in a relationship wi th someone who hurts you emotionally and/or physically? No 08/27/2024 Food Insecurity Answer Date Recorded Patient needs follow up regardin 08/25/2024 Transportation Needs Answer Date Record ed Patient needs follow up regardin 08/25/2024 Housing Stability Answer Date Recorded Social/Environmental Concerns No concerns Utility Needs Answer Date Recorded Patient needs follow up regardin 08/25/2024 Comments No Sex and Gender Information Value Date Recorded Sex Assigned at Not on file Legal Sex Female 3:55 AM CHILDCARE PROVIDER Gender Identity Not on file Sexual Orientation Not on file documented as of this encounter Miscellaneous Notes * Telephone Encounter - Nikki Novoa - 02/03/2025 10:53 AM CDT Copied from [facility] #[id number]. Topic: Medication Request >> Feb 03, 2025 10:48 AM Nikki Mcgee wrote: Caller Name: Ricarda Rendon (Caregiver) not on PHI-Pt gave Permission Callback Number: [phone] Medication (Ask patient/caregiver to spell if possible): furosemide (LASIX) 40 mg tablet Note: All medication prescriptions can be requested using one [facility] Preferred Pharmacy: [facility] [address] [facility], [place] - [address], [facility] [address] Call Notes: States Pt is out of medication because she has been taking 2 pills daily because 1 pillis not strong enough. Did caller contact the correct clinic for prescribing provider? Yes Ask caller if the refill is for a controlled medication. Is this for a controlled Medication? No Review the patient's medications to determine if they have refills remaining. Are there refills remaining for the medication? Yes Did the patient/caregiver contact their pharmacy for refill prior to calling? Yes Is there an encounter open? No documented in this encounter Plan of Treatment Not on file documented as of this encounter Visit Diagnoses Diagnosis Alcoholic cirrhosis of liver without ascites Alcoholic cirrhosis of liver documented in this encounter Care Teams Criminology Teacher Relationship Specialty Start Date End Date Alf Tavares MD [address] [phone] PCP - General Family Practice 07/12/24 documented as of this encounter
--- OUTSIDE RECORDS SUMMARY | 2025-02-03 12:51 | XMS_ITS | Encounter Summary ---
Author Organization [facility] Address [address] [place] [address] Care Team Providers Care Railroad Police Officer Name Role Phone Alf Tavares MD Primary Care Provider [phone] Encounter Details Date Type Department Care Team (Latest Contact Info) Description 12/25/2002 Outpatient Historical [facility] [address] [place] [address] AMBULANCE, [facility] CHEST PAIN NOS (Primary Dx) Social History Tobacco Use Types Packs/Day Years Used Date Smoking Tobacco: Never Assessed Comments Unknown Sex and Gender Information Value Date Recorded Sex Assigned at Not on file Legal Sex Female 4:48 AM CHIEF CRNA Gender Identity Not on file Sexual Orientation Not on file documented as of this encounter Plan of Treatment Not on file documented as of this encounter Visit Diagnoses Diagnosis Chest pain, unspecified- Primary documented in this encounter Additional Health Concerns Infection Onset Date Last Indicated Resolved Time R/O COVID-19 04/14/2020 04/14/2020 04/15/2020 11:0 1 PM CHIEF CRNA documented as of this encounter Care Teams Railroad Police Officer Relationship Specialty Start Date End Date Alf Tavares MD [address] [facility] [address] [place] [phone] PCP - General Family Practice 01/28/18 documented as of this encounter
--- OUTSIDE RECORDS SUMMARY | 2025-02-03 12:51 | XMS_ITS | Encounter Summary ---
Author Organization [facility] Address [address] [place] [address] Care Team Providers Care Adjunct Professor Of Law Name Role Phone Alf Tavares MD Primary Care Provider [phone] Encounter Details Date Type Department Care Team (Late st Contact Info) Description 04/26/2007 Outpatient Historical [facility] [address] [place] [address] Jerome Banuelos MD [address] [address] Social History Tobacco Use Types Packs/Day Years Used Date Smoking Tobacco: Never Assessed Comments Unknown Sex and Gender Information Value Date Recorded Sex Assigned at Not on file Legal Sex Female 4:48 AM CIRCUIT BOARD REPAIR TECHNICIAN Gender Identity Not on file Sexual Orientation Not on file documented as of this encounter Plan of Treatment Not on file documented as of this encounter Visit Diagnoses Not on filedocumented in this encounter Additional Health Concerns Infection Onset Date Last Indicated Resolved Time R/O COVID-19 04/14/2020 04/14/2020 04/15/2020 11:0 1 PM CIRCUIT BOARD REPAIR TECHNICIAN documented as of this encounter Care Teams Adjunct Professor Of Law Relationship Specialty Start Date End Date Alf Tavares MD [address] [facility] [address] [place] [phone] PCP - General Family Practice 01/28/18 documented as of this encounter
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
--- OUTSIDE RECORDS SUMMARY | 2025-02-03 12:51 | XMS_ITS | Clinical Summary ---
Author Organization [facility] Address [address] [place] [address] Care Team Providers Care Fellmongery Worker Name Role Phone Alf Tavares MD Primary Care Provider [phone] Allergies Active Allergy Reactions Criticality Noted Date Comments Codeine Nausea and Vomiting Low 01/20/2013 Medications pantoprazole (PROTONIX) 40 mg Tablet, Delayed Release (E.C.)Indications: Gastroesophageal reflux disease without esophagitis TAKE 1 TABLET(40 MG) BY MOUTH DAILY 90 Tablet 1 1 Active traZODone (DESYREL) 150 mg tabletIndications: Primary insomnia TAKE 1 TABLET(150 MG) BY MOUTH EVERY NIGHT NEEDED FOR INSOMNIA 90 Tablet 1 1 Active potassium chloride (KLOR-CON) 10 mEq Extended Release tabletIndications: Localized edema TAKE 1 TABLET(10 MEQ) BY MOUTH DAILY WITH BREAKFAST 90 Tablet 1 1 Active hydrOXYzine HCL (ATARAX) 50 mg tabletIndications: Recurrent major depressive disorder, in partial remission TAKE 1 TABLET BY MOUTH THREE TIMES DAILY NEEDED FOR ANXIETY 270 Tablet 1 1 Active mirtazapine (REMERON) 15 mg tabletIndications: Recurrent major depressive disorder, in partial remission TAKE 1 TABLET(15 MG) BY MOUTH DAILY AT BEDTIME 90 Tablet 1 1 Active fluticasone propionate (FLONASE) 50 mcg/spray [place], Suspension nasal inhalerIndications :Allergic rhinitis, unspecified seasonality, unspecified trigger Administer 2 Sprays in each nostril daily. 48 Gram 1 1 Active albuterol HFA 90 mcg inhalerIndications :Panlobular emphysema Take 2 Puffs by inhalation every 8 hours as needed for Shortness of Breath or Wheezing. 8.5 Gram 1 1 Active azelastine (OPTIVAR) 0.05 % solutionIndication s:Allergic conjunctivitis of both eyes Administer 1 Drop in both eyes 2 times daily. 6 mL 2 1 Active furosemide (LASIX) 40 mg tabletIndications: Localized edema TAKE 1 TABLET BY MOUTH DAILY EARLY AM 30 Tablet 1 Active docusate sodium (COLACE) 100 mg capsuleIndications :Constipation, unspecified constipation type Take 1 Capsule (100 mg) by mouth 2 times daily. 60 Capsule 1 1 Active sucralfate (CARAFATE) 1 gram tabletIndications: Gastroesophageal reflux disease without esophagitis Take 1 Tablet (1 Gram) by mouth 4 times daily before meals and at bedtime. 450 Tablet 1 1 Active nicotine (NICODERM CQ) 21 mg/24 hr patchIndications:E ncounter for tobacco use cessation counseling Apply 1 Patch to skin as directed every 24 hours. 28 Patch 1 Active ondansetron (Zofran) 4 mg TabletIndications: Nausea Take 1 Tablet (4 mg) by mouth every 12 hours as needed for Nausea/Emesis. 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 12/31/2018 Overview (12/31/2018): Added per PVQ response dos 12.25.2018 GERD (gastroesophageal reflux disease) 9 Overview (12/31/2018): Added per PVQ response dos 8..2018 Alcoholic cirrhosis of liver without ascites 11/2017 History of hepatitis C 08/22/2017 Dyspnea on exertion 10/24/2016 Idiopathic hypotension 10/24/2016 Primary insomnia 10/24/2016 Recurrent major depressive disorder 09/11/2016 Overview (12/31/2018): Added per PVQ response dos 8..2018 COPD (chronic obstructive pulmonary disease) Generalized anxiety disorder 07/16/2014 Overview (12/31/2018): Added per pVQ response dos 8 Tobacco abuse 07/16/2014 Alcohol abuse, daily use 07/16/2014 Resolved Problems Problem Noted Date Diagnosed Date Resolved Date Pneumonia due to Streptococcus pneumoniae 07/18/2014 09/11/2016 Pneumonia, organism unspecified 07/16/2014 09/11/2016 Depression 09/11/2016 Immunizations Immunization Administration Dates Next Due (JT) COVID-19 VACCINE - EMERGENCY USE AUTHORIZATION, AD26,COV2S(PF) 0.5 ML IM SUSP 10/26/2020 Family History Medical History Relation Name Comments Diabetes Brother Emphysema Maternal Aunt Diabetes Maternal Grandmother Relation Name Status Comments Brother Maternal Aunt Maternal Grandmother Social History Tobacco Use Types Packs/Day Years Used Date Smoking Tobacco: Every Day Cigarettes 1 50.6 Started: 07/16/1974 Smokeless Tobacco: Never Tobacco Cessation:Ready to Q uit: No; Counseling Given: Yes Alcohol Use Standard Drinks/Week Comments Yes 0 (1 standard drink = 0.6 oz pur e alcohol) 6 beer per day Social Connections Answer Date Recorded In a typical week, how many times do you talk on the phone with family, friends, or neighbors? More than three times a week 01/28/2020 How often do you get togethe r with friends or relatives? Once a week 01/28/2020 How often do you attend chur ch or latter-day services? Never 01/28/2020 Do you belong to any clubs o r organizations such as taoist groups, unions, fraternal or athletic groups, or [...] things needed for daily living? Yes 01/28/2020 Education Answer Date Recorded What is the highest level of school you have completed or the highest degree you have received? 11th grade 01/28/2020 Comments No Sex and Gender Information Value Date Recorded Sex Assigned at Not on file Legal Sex Female 4:48 AM ROUTE MANAGER Gender Identity Not on file Sexual Orientation Not on file Occupation Industry Job Start Date Job End Date Not on file Not on file Not on file Not on file Not on file Not on file Not on file Not on file Last Filed Vital Signs Vital Sign Reading Time Taken Comments Blood Pressure 110/70 10/20/2020 8:16 AM CDT Pulse 84 10/20/2020 8:16 AM CDT Temperature 36.4 C (97.6 F) 10/20/2020 8:16 AM CDT Respiratory Rate 20 10/20/2020 8:16 AM CDT Oxygen Saturation 99% 10/20/2020 8:16 AM CDT Inhaled Oxygen Concentration - - Weight 44.9 kg (99 lb) 10/20/2020 8:16 AM CDT Height 166.4 cm (5' 5.5 ) 10/20/2020 8:16 AM CDT Body Mass Index 16.22 10/20/2020 8:16 AM CDT Plan of Treatment Health Maintenance Due Date Last Done Comments FIT/ DNA Q 3 YEARS (AUTO ORDER) 1978 FIT/FOBT Q 1 YEAR (AUTO ORDER) 1978 FLEX SIG/CT COLONOGRAPHY Q 5 YEARS (AUTO ORDER) 1978 DTAP/TDAP/TD VACCINES (1 - Tdap) 12/22/1979 HPV/Cotest (21-29) 1981 CERVICAL CANCER SCREENING 1990 HPV/Cotest (30-65) 1990 PAP SMEAR 1990 BREAST CANCER SCREENING 2000 COLORECTAL CANCER SCREENING (AUTO ORDER) 2005 COLORECTAL SCREENING 2005 Colorectal Cancer Screening (AUTO ORDER) 2005 Colorectal Cancer Screening 2005 FIT-DNA Q 3 years 2005 FIT/FOBT Q 1 year 2005 Flex Sig/CT Colonography Q 5 years 2005 ZOSTER VACCINE (1 of 2) 2010 RSV VACCINE (60+ or ) (1 - Risk 60-74 years 1-dose series) 2020 Medicare Advantage ([place]) Prev entative Visit/Annual Wellness Visit 05/05/2024 01/28/2020 INFLUENZA VACCINE (#1) 2024 06/28/2019, 2017 COVID-19 Vaccine (2 - season) [address] [place] [address] DUAL COMPLETE [facility] HMO OKDSNP Advance Directives For more information, please contact: [phone] * Full Code (Latest Code Status on File) Date Activated Date Inactivated Comments 07/16/2014 5:57 PM 07/19/2014 4:28 PM Care Teams Fellmongery Worker Relationship Specialty Start Date End Date Alf Tavares MD [address] [address] PCP - General Family Practice 01/28/18
--- OUTSIDE RECORDS SUMMARY | 2025-02-03 12:51 | XMS_ITS | Encounter Summary ---
Author Organization [facility] Address [address] Pan: Epic Prelude ADT DELLA ARIAS [address] Care Team Providers Care Building Surveyor Name Role Phone Alf Tavares MD Primary Care Provider [phone] Encounter Details Date Type Department Care Team (Late st Contact Info) Description 03/07/2006 Outpatient Historical [facility] [address] [place], [place] [id number] Social History Tobacco Use Types Packs/Day Years Used Date Smoking Tobacco: Never Assessed Comments Unknown Sex and Gender Information Value Date Recorded Sex Assigned at Not on file Legal Sex Female 4:48 AM GEM STONE CUTTER Gender Identity Not on file Sexual Orientation Not on file documented as of this encounter Plan of Treatment Not on file documented as of this encounter Procedures Procedure Name Priority Date/Time Associated Diagnosis Comments ACUTE HEPATITIS PANEL Routine 03/07/2006 11:09 AM GEM STONE CUTTER documented in this encounter Results * ACUTE HEPATITIS PANEL (03/07/2006 11:09 AM GEM STONE CUTTER) HEPATITIS B SURFACE AG Negative Negative INTERFACE SYSTEM HEPATITIS B CORE IGM Negative Negative INTERFACE SYSTEM HEPATITIS A IGM Negative Negative INTE RFACE SYSTEM HEPATITIS C AB Negative Negative INTER FACE SYSTEM Comment: HCV antibody testing is performed by E.I.A. methodology. CDC recommends positive HCV antibody tests have confirmation testing. Low positive results should be confirmed with RIBA. This will determine if results are false positive. If a high positive result is obtained an HCV RNA may be run. The RNA test confirms infection and the level of the RNA, to some extent, helps guide treatment. The same specimen can be used for RIBA and will be held for 7 days. Please contact the Immunology lab if RIBA testing is desired. However, if HCV RNA testing is desired, a new specimen must be collected. Blood should be collected in SST (serum) or EDTA (plasma) separation tubes. Separate serum or plasma from whole blood within 6 hours of collection. Serum or plasma can be transported at refrigerated temperature or frozen and transported. 03/07/2006 11:0 9 AM GEM STONE CUTTER us [facility] DO CHEMISTRY ORDERABLES Final Result INTERFACE SYSTEM Refer to clinic/hospital department documented in this encounter Visit Diagnoses Not on filedocumented in this encounter Additional Health Concerns Infection Onset Date Last Indicated Resolved Time R/O COVID-19 04/14/2020 04/14/2020 04/15/2020 11:0 1 PM GEM STONE CUTTER documented as of this encounter Care Teams Building Surveyor Relationship Specialty Start Date End Date Alf Tavares MD [address] [address] PCP - General Family Practice 01/28/18 documented as of this encounter
--- OUTSIDE RECORDS SUMMARY | 2025-02-03 12:51 | XMS_ITS | Clinical Summary ---
Author Organization [facility] Address [address] [place] [address] Care Team Providers Care Corporate Fitness Program Coordinator Name Role Phone Alf Tavares MD Primary Care Provider [phone] Allergies Active Allergy Reactions Criticality Noted Date Comments Codeine Nausea and Vomiting Low 01/20/2013 Medications fluticasone propionate (FLONASE) 50 mcg/spray [place], Suspension nasal inhalerIndicati ons:Allergic rhinitis, unspecified seasonality, unspecified trigger Administer 2 Sprays in each nostril daily. 48 Gram 1 2 Active albuterol sulfate HFA 90 mcg/actuation aerosol inhalerIndicati ons:Panlobular emphysema INHALE 2 PUFFS BY MOUTH EVERY 8 HOURS NEEDED 8 Gram 3 5 Active sucralfate (CARAFATE) 1 gram tabletIndicatio ns:Gastroesopha geal reflux disease without esophagitis Take 1 Tablet (1 Gram) by mouth 4 times daily before meals and at bedtime. 450 Tablet 3 5 Active traZODone (DESYREL) 150 mg tabletIndicatio ns:Primary insomnia Take 1 Tablet (150 mg) by mouth daily at bedtime. 90 Tablet 3 5 Active spironolactone (ALDACTONE) 25 mg tabletIndicatio ns:Acute on chronic congestive heart failure, unspecified heart failure type Take 1 Tablet (25 mg) by mouth daily. 90 Tablet 3 5 Active pantoprazole (PROTONIX) 40 mg Tablet, Delayed Release (E.C.)Indicatio ns:Gastroesopha geal reflux disease without esophagitis Take 1 Tablet (40 mg) by mouth 2 times daily. 60 Tablet 5 Active HYDROcodone-alejandra taminophen (NORCO) 5-325 mg tabletIndicatio ns:Lower abdominal pain, unspecified Take 1 Tablet by mouth every 4 hours as needed for Pain. Max Daily Amount: 6 Tablets 20 Tablet 5 Active hydrOXYzine HCL (ATARAX) 50 mg tabletIndicatio ns:Recurrent major depressive disorder, in partial remission TAKE 1 TABLET BY MOUTH THREE TIMES DAILY NEEDED FOR ANXIETY . APPOINTMENT REQUIRED FOR FUTURE REFILLS 90 Tablet 5 Active furosemide (LASIX) 40 mg tabletIndicatio ns:Alcoholic cirrhosis of liver without ascites Take 1 Tablet (40 mg) by mouth daily. 100 Tablet 1 5 Active furosemide (LASIX) 40 mg tabletIndicatio ns:Alcoholic cirrhosis of liver without ascites Take 1 tablet by mouth once daily 100 Tablet 1 5 025 Discontin ued(Reord er) Active Problems Problem Noted Date Diagnosed Date Melena 08/19/2024 Gastrointestinal hemorrhage 08/19/2024 Acute blood loss anemia 08/18/2024 Hematemesis without nausea 08/18/2024 Elevated LFTs 08/18/2024 Tobacco abuse counseling 08/18/2024 Protein-calorie malnutrition, severe 02/10/2024 Acute bronchitis due to Streptococcus 02/10/2024 Muscular chest pain 02/09/2024 GERD (gastroesophageal reflux disease) 9 Overview (08/31/2020): Added per PVQ response dos 8..2019 Alcoholic cirrhosis 10/09/2017 History of hepatitis C 08/22/2017 Primary insomnia 10/24/2016 Dyspnea on exertion 10/24/2016 Idiopathic hypotension 10/24/2016 Recurrent major depressive disorder 09/11/2016 Overview (08/31/2020): Added per PVQ response dos 8..2019 Generalized anxiety disorder 07/16/2014 Overview (08/31/2020): Added per pVQ response dos 8.23.2019 Tobacco abuse 07/16/2014 Alcohol abuse, daily use 07/16/2014 COPD (chronic obstructive pulmonary disease) Resolved Problems Problem Noted Date Diagnosed Date Resolved Date Alcohol abuse with other alc ohol-induced disorder 12/31/2018 07/12/2024 Overview (08/31/2020): Added per PVQ response dos 8..2018 Pneumonia due to Streptococcus pneumoniae 07/18/2014 09/11/2016 Pneumonia, organism unspecified 07/16/2014 09/11/2016 Depression 09/11/2016 Encounters Date Type Department Care Team Description 02/03/[address] [place] [address] Lisandra Ontiveros, STAB SETTER AND DRILLER Alcoholic cirrhosis of liver without ascites 01/19/2025 External Device Data STL ABSTRACTION Provider, Abstract 01/04/2025 External Device Data STL ABSTRACTION Provider, Abstract 01/04/[address] [address] Lisandra Ontiveros, STAB SETTER AND DRILLER Alcoholic cirrhosis of liver without ascites 12/22/2024 External Device Data STL ABSTRACTION Provider, Abstract 12/20/[address] [place] [address] Lisandra Ontiveros, STAB SETTER AND DRILLER Alcoholic cirrhosis of liver without ascites 12/17/[address] [address] Lisandra Ontiveros, STAB SETTER AND DRILLER Alcoholic cirrhosis of liver without ascites 12/09/2024 6:50 AM CDT - 12/09/2024 11:59 PM CDT Hospital Encounter [facility] Emergency Medical Services [place] [address] [place] [address] Ambulance, [facility] Discharge Disposition: Home or Self Care 11/23/2024 External Device Data STL ABSTRACTION Provider, Abstract 11/23/2024 External Device Data STL ABSTRACTION Provider, Abstract 11/09/2024 External Device Data STL ABSTRACTION Provider, Abstract 11/08/[address] [address] Lisandra Ontiveros, ABHI Referral 11/04/2024 [facility] [address] [facility] [address] [place] [address] Rama, Lisandra Toña, ABHI Recurrent major depressive disorder, in partial remission from Last 3 Months Immunizations Immunization Administration Dates Next Due (JT) COVID-19 VACCINE - EMERGENCY USE AUTHORIZATION, AD26,COV2S(PF) 0.5 ML IM SUSP 10/26/2020 (PNEUMOVAX 23)(50 YRS UP) PN EUMOCOCCAL POLYSACCHARIDE (PPV23) 0.5 ML, IM 10/30/2016 Influenza Seasonal Unspecified Formulation IM Family History Medical History Relation Name Comments Diabetes Brother Emphysema Maternal Aunt Diabetes Maternal Grandmother Relation Name Status Comments Brother Maternal Aunt Maternal Grandmother Social History Tobacco Use Types Packs/Day Years Used Date Smoking Tobacco: Former Cigarettes 1 50.6 S tarted: 07/16/1974 Smokeless Tobacco: Never Tobacco Cessation:Counseling Given: Not Answered Alcohol Use Standard Drinks/Week Comments Not Currently [...] any clubs o r organizations such as mu-ism groups, unions, fraternal or athletic groups, or [...] on file 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 Gender Identity Not on file Sexual Orientation Not on file Last Filed Vital Signs Vital Sign Reading Time Taken Comments Blood Pressure 124/51 08/27/2024 9:30 AM CDT Pulse 95 08/27/2024 9:30 AM CDT Temperature 37.1 C (98.7 F) 08/27/2024 6:58 AM CDT Respiratory Rate 16 08/27/2024 9:30 AM CDT Oxygen Saturation 98% 08/27/2024 9:30 AM CDT Inhaled Oxygen Concentration - - Weight 45 kg (99 lb 1.6 oz) 08/27/2024 6:58 AM C DT Height 165.1 cm (5' 5 ) 08/27/2024 6:58 AM CDT Body Mass Index 16.49 08/27/2024 6:58 AM CDT Plan of Treatment Health Maintenance [...] 60-74 years 1-dose series) 2020 [place] Preventative Visit/Annual Wellness Visit 05/05/2024 INFLUENZA VACCINE (#1) 2024 , 01/15/2023, 08/31/2021, Additional history exists COVID-19 Vaccine (2 - 2024-2 6 season) 2025 10/26/2020 Insurance MEDICAID [facility] DUAL COMPLETE HMO [facility] [id number] Advance Directives For more information, please contact: [phone] * Full Code (Latest Code Status on File) Date Activated Date Inactivated Comments 08/18/2024 9:22 PM 08/20/2024 5:55 PM * Full Code Date Activated Date Inactivated Comments 02/09/2024 2:05 AM 02/11/2024 8:18 PM Care Teams Corporate Fitness Program Coordinator Relationship Specialty Start Date End Date Alf Tavares MD [address] [address] PCP - General Family Practice 07/12/24
--- OUTSIDE RECORDS SUMMARY | 2025-02-03 12:51 | XMS_ITS | Encounter Summary ---
Author Organization [facility] Address [address] [place] [address] Care Team Providers Care Silo Worker Name Role Phone Alf Tavares MD Primary Care Provider [phone] Encounter Details Date Type Department Care Team (Late st Contact Info) Description 03/26/2007 Outpatient Historical [facility] Wound Care [address] [place] [address] Jerome Banuelos MD [address] [address] Social History Tobacco Use Types Packs/Day Years Used Date Smoking Tobacco: Never Assessed Comments Unknown Sex and Gender Information Value Date Recorded Sex Assigned at Not on file Legal Sex Female 4:48 AM BUS STARTER Gender Identity Not on file Sexual Orientation Not on file documented as of this encounter Plan of Treatment Not on file documented as of this encounter Visit Diagnoses Not on filedocumented in this encounter Additional Health Concerns Infection Onset Date Last Indicated Resolved Time R/O COVID-19 04/14/2020 04/14/2020 04/15/2020 11:0 1 PM BUS STARTER documented as of this encounter Care Teams Silo Worker Relationship Specialty Start Date End Date Alf Tavares MD [address] [facility] [address] [place] [address] PCP - General Family Practice 01/28/18 documented as of this encounter
--- OUTSIDE RECORDS SUMMARY | 2025-02-03 12:51 | XMS_ITS | Encounter Summary ---
Author Organization [facility] Address [address] [place] [address] Care Team Providers Care Athlete Manager Name Role Phone Alf Tavares MD Primary Care Provider [phone] Encounter Details Date Type Department Care Team (Late st Contact Info) Description 07/12/2024 Lab Requisition [facility] Laboratory Services [place] [address] [facility] [address] [place] [address] Lisandra Ontiveros, [facility] [address] [place] [address] Alcoholic cirrhosis of liver without ascites (CMS/HCC) Social History Tobacco Use Types Packs/Day Years Used Date Smoking Tobacco: Every Day Cigarettes 1 50.6 Started: 07/16/1974 Smokeless Tobacco: Never Alcohol Use Standard [...] often do you attend chur ch or temple services? Never 01/28/2020 Do you belong to any clubs o r organizations such as anglican groups, unions, fraternal or athletic groups, or [...] who hurts you emotionally and/or physically? 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 Gender Identity Not on file Sexual Orientation Not on file documented as of this encounter Plan of Treatment Not on file documented as of this encounter Procedures Procedure Name Priority Date/Time Associated Diagnosis Comments CBC WITH DIFFERENTIAL Stat 07/12/2024 8:57 AM CDT Alcoholic cirrhosis of liver without ascites (CMS/HCC) PTT Stat 07/12/2024 8:57 AM CDT Alcoholic cirrhosis of liver without ascites (CMS/HCC) BRAIN NATRIURETIC PEPTIDE, BNP OR PROBNP Stat 07/12/2024 8:57 AM CDT Alcoholic cirrhosis of liver without ascites (CMS/HCC) AMMONIA LEVEL Stat 07/12/2024 8:57 AM CDT Alcoholic cirrhosis of liver without ascites (CMS/HCC) documented in this encounter Results * PTT (07/12/2024 8:57 AM CDT) PTT 32.4 25.8 - 34.0 seconds 07/12/2024 9:11 AM CDT [facility] Blood Collection / Unknown 07/12/2024 8:57 AM CDT 07/12/2024 8:57 AM CDT us Lisandra Ontiveros WATER RESOURCE SPECIALIST HEMATOLOGY ORDERABLES Fi nal Result [facility] CLIA # [id number] [address] [place] [address] * (ABNORMAL) BRAIN NATRIURETIC PEPTIDE, BNP OR PROBNP (07/12/2024 8:57 AM CDT) PROBNP, N TERMINAL 545(H) 0 - 125 pg/mL 07/12/2024 9:16 AM CDT [facility] Comment: INTERPRETIVE COMMENT based on diagnosis: Diagnostic NT pro-BNP cutoffs for Heart Failure in the absence of renal failure is suggested for the following ranges <75 years: <125 pg/mL >=75 years: <450 pg/mL Exclusionary rule out cut-point for Acute Decompensated Heart Failure(ADHF) All ages: <300 pg/mL Diagnostic NT pro-BNP cutoffs for Acute Decompensated Heart Failure(ADHF) in the absence of renal failure is suggested for the following ages <50 years: > 450 pg/mL 50-75 years: > 900 pg/mL >75 years: >1800 pg/mL Blood Collection / Unknown 07/12/2024 8:57 AM CDT 07/12/2024 8:57 AM CDT us Lisandra MOE CHEMISTRY ORDERABLES Fin al Result [facility] CLIA # [id number] [address] [place] [id number] * (ABNORMAL) CBC WITH DIFFERENTIAL (07/12/2024 8:57 AM CDT) WBC 8.4 4.0 - 10.0 K/uL 07/12/2024 9:09 AM [facility] RBC 3.20(L) 3.93 - 5.22 M/uL 07/12/2024 9:09 AM [facility] HEMOGLOBIN 9.7(L) 11.2 - 15.7 g/dL 07/12/2024 9:09 AM [facility] HEMATOCRIT 28.3(L) 34.1 - 44.9 % 07/12/2024 9:09 AM [facility] MCV 88.4 79.4 - 94.8 fL 07/12/2024 9:09 AM [facility] MCH 30.3 25.6 - 32.2 pg 07/12/2024 9:09 AM [facility] MCHC 34.3 32.2 - 35.5 g/dL 07/12/2024 9:09 AM [facility] RDW 19.3(H) 11.0 - 14.5 % 07/12/2024 9:09 AM [facility] RDW-STDEV 61.2(H) 36.9 - 56.9 fL 07/12/2024 9:09 AM [facility] PLATELETS 274 163 - 337 K/uL 07/12/2024 9:09 AM [facility] MPV 10.4 10.0 - 14.8 fL 07/12/2024 9:09 AM [facility] NEUTROPHILS 63 34 - 71 % 07/12/2024 9:09 AM [facility] LYMPHOCYTES 23 19 - 52 % 07/12/2024 9:09 AM [facility] MONOCYTES 13 5 - 13 % 07/12/2024 9:09 AM [facility] EOSINOPHILS 1 1 - 6 % 07/12/2024 9:09 AM [facility] BASOPHILS 1 0 - 1 % 07/12/2024 9:09 AM [facility] IMMATURE GRANULOCYTES 0 % 07/12/2024 9:09 AM CDT [facility] NEUTROPHIL ABSOLUTE 5.25 1.56 - 6.13 K/uL 07/12/2024 9:09 AM T [facility] LYMPHOCYTE ABSOLUTE 1.88 1.20 - 3.40 K/uL 07/12/2024 9:09 AM T [facility] MONOCYTE ABSOLUTE 1.06(H) 0.24 - 0.36 K/uL 07/12/2024 9:09 AM CDT [facility] EOSINOPHIL ABSOLUTE 0.06 0.04 - 0.36 K/uL 07/12/2024 9:09 AM T [facility] BASOPHILS ABSOLUTE 0.07 0.01 - 0.08 K/uL 07/12/2024 9:09 AM [facility] IMMATURE GRANULOCYTES ABSOLUTE 0.03 K/uL 07/12/2024 9:09 AM [facility] Blood Collection / Unknown 07/12/2024 8:57 AM CDT 07/12/2024 8:57 AM CDT us Lisandra Ontiveros WATER RESOURCE SPECIALIST HEMATOLOGY ORDERABLES Fi nal Result [facility] CLIA # [id number] [address] [place] [address] * AMMONIA LEVEL (07/12/2024 8:57 AM CDT) AMMONIA 21.5 11.0 - 51.0 umol/L 07/12/2024 9:16 AM CDT [facility] Blood, venous Collection / Unknown 07/12/2024 8:57 AM CDT 07/12/2024 8:57 AM CDT Lisandra Ontiveros WATER RESOURCE SPECIALIST CHEMISTRY ORDERABLES Fin al Result [facility] CLIA # [id number] [address] [place] [address] documented in this encounter Visit Diagnoses Diagnosis Alcoholic cirrhosis of liver without ascites Alcoholic cirrhosis of liver documented in this encounter Additional Health Concerns Assessment Noted Time PHQ-9 Depression Total Score: 4 07/13/19 25 7:59 AM CDT documented as of this encounter Care Teams Athlete Manager Relationship Specialty Start Date End Date Alf Tavares MD [address] [facility] [address] [place] [address] PCP - General Family Practice 07/12/24 documented as of this encounter
--- OUTSIDE RECORDS SUMMARY | 2025-02-03 12:51 | XMS_ITS | Encounter Summary ---
Author Organization [facility] Address [address] [place] [address] Care Team Providers Care Dispatcher Chief Coal Slurry Name Role Phone Alf Tavares MD Primary Care Provider [phone] Encounter Details Date Type Department Care Team (Late st Contact Info) Description 02/23/2007 Outpatient Historical [facility] Wound Care [address] 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 Gender Identity Not on file Sexual Orientation Not on file documented as of this encounter Plan of Treatment Not on file documented as of this encounter Visit Diagnoses Not on filedocumented in this encounter Additional Health Concerns Infection Onset Date Last Indicated Resolved Time R/O COVID-19 04/14/2020 04/14/2020 04/15/2020 11:0 1 PM INTERIOR WIRER documented as of this encounter Care Teams Dispatcher Chief Coal Slurry Relationship Specialty Start Date End Date Alf Tavares MD [address] [facility] [address] [place] [address] PCP - General Family Practice 01/28/18 documented as of this encounter
[2025-02-03 13:02] LABS: Mean Corpuscular HGB Conc 30.9 g/dL (30-55); Mean Corpuscular Hemoglobin 29.8 pg (27-33); Mean Corpuscular Volume 96.5 fl (85-98); Nucleated Red Blood Cells % 0.7 %; Platelet Count 133 10^3/cmm (157-399); Red Blood Count 1.98 10^6/uL (3.85-5.65); White Blood Count 9.53 10^3/uL (3.29-11.43)
[2025-02-03 13:06] LABS: Hematocrit 19.1 % (36-47); Hemoglobin 5.90 g/dL (11.27-16.99)
--- NOTE | 2025-02-03 13:09 | ECG_ITS ---
[facility]: [facility] Pat Name: Sapna Talamantes Department: Room: Gender: Female Blood Donor Recruiter Supervisor: : 1960 Requested By: Sujey Griggs Order Number: [id number] Joel MD: Ata Hargrove M.D. Measurements Intervals Babcock Rate: 104 P: 72 PA: 122 QRS: 46 QRSD: 82 T: 29 QT: 295 QTc: 389 Interpretive Statements SINUS T[address]ARD[address] DEVIATION AND MODERATE T-WAVE ABNORMALITY, CONSIDER LATERAL ISCHEMIA [-0.1+ mV T-WAVE IN I/aVL/V5/V6] Possible old inferior wall NH Compared to ECG 04/06/2024 17:48:50 Possible ischemia now present T-wave abnormality still present Electronically Signed On 02-03-2025 17:13:27 CDT by Ata Hargrove M.D. [id number]
[2025-02-03] MEDS: ondansetron 2 mg/ML SDV 2 mL 8 MG IVP (13:18)
[2025-02-03 13:23] LABS: Alanine Aminotransferase 45 U/L (0-33); Albumin Level 3.5 g/dL (3.5-5.2); Alkaline Phosphatase 139 U/L (35-105); Aspartate Amino Transferase 110 U/L (0-32); Blood Urea Nitrogen 59 mg/dL (8-23); Calcium 10.0 mg/dL (8.5-10.5); Carbon Dioxide 24 mmol/L (22-29); Chloride 86 mmol/L (98-107); Creatinine Clr Calc Pharmacy 39.8148; Globulin 3.9 g/dL (1.3-4.6); Glucose 111 mg/dL (65-115); Osmolality Calculated 303 mOsm/kg (285-295); Sodium 138 mmol/L (136-145); Total Protein 7.4 g/dL (6.6-8.7)
[2025-02-03] MEDS: pantoprazole 40 mg SDV 80 MG IVP (13:25)
[2025-02-03 13:29] LABS: Anion Gap 31.1 (5-19); Potassium 3.1 mmol/L (3.5-5.1)
[2025-02-03 13:40] LABS: INR 1.31 (0.8-1.2); Partial Thromboplastin Time 29.9 SECONDS (23.9-36.7); Prothrombin Time 17.10 SECONDS (12.1-14.9)
[2025-02-03 13:43] LABS: Lactic Sepsis W/Reflex 7.7 mmol/L (0.5-2.2)
[2025-02-03 14:30] VITALS: BP 81/47; BP 84/58; PULSE 100; PULSE 106; PULSE 107; RESP 15; TEMP 36.9; O2SAT 95; O2SAT 99
--- NOTE | 2025-02-03 14:42 | PC.NURSE ---
PATIENT LEFT WITH [facility] PRIOR TO 15 MINUTE BLOOD TRANSFUSION LEIGH. PATIENT STABLE UPON TRANSFER.
[2025-02-03 14:44] VITALS: BP 100/65; PULSE 106; RESP 16; O2SAT 100
[2025-02-03 14:51] VITALS: TEMP 36.8
--- NOTE | 2025-02-03 14:51 | PC.NURSE ---
PATIENT BLOOD STARTED AT 75 ML/HR, INCREASED TO 240 ML/HR UPON EMS TRANSFER. PATIENT TOLERATING BLOOD ADMINISTRATION WELL. REPORT CALLED TO ENMANUEL LOPEZ AT [facility].
[2025-02-03 15:04] VITALS: BP 100/65; PULSE 109; O2SAT 91
[2025-02-03 15:06] LABS: Reflex Lactate Order REFLEX LACTIC ORDERD
== END 2025-02-03 15:07 | disposition short-term general hospital (02) ==
PROVIDERS: Emergency Provider Emergency Medicine; PCP Nurse Practitioner Family
DX: K92.2 Gastrointestinal hemorrhage, unspecified (principal); D62 Acute posthemorrhagic anemia; K74.60 Unspecified cirrhosis of liver; J44.9 Chronic obstructive pulmonary disease, unspecified; Z87.19 Personal history of other diseases of the digestive system
CPT/HCPCS: 36415; 80053; 83605; 85025; 85610; 85730; 86850; 86900; 86920; 93005; 96374; 96375; 99285; J2354; J2405; J2470; J7030; P9040